=== PATIENT | male | born 1980 | race Caucasian/White ===

== ENCOUNTER → 2024-10-12 10:44 | Outpatient (CLI) | payer MEDICARE, MEDICAID, SELFPAY | PROVIDERS: PCP Registered Nurse; Visit Provider Urology | DX: N47.1 Phimosis (principal); F52.4 Premature ejaculation; R39.9 Unspecified symptoms and signs involving the genitourinary system; Z30.09 Encounter for other general counseling and advice on contraception | CPT/HCPCS: 87086; 99214 ==

== ENCOUNTER 2024-10-21 06:07 | Day surgery (SDC) | payer MEDICARE, SELFPAY ==
[2024-09-16 13:32] VITALS: BMI 23.6
[2024-10-21] VITALS (9 sets, daily range): BP systolic 92–133; BP diastolic 53–85; PULSE 55–67; RESP 12–18; TEMP 36.3–36.6; O2SAT 92–97; BMI 22.9
[2024-10-21] MEDS: LACTATED RINGERS 1,000 ML 21 ML IV (07:06)
--- NOTE | 2024-10-21 07:31 | PM.PREOP ---
Pre-operative Note COVID-19 COVID-19 status: Not tested Interval Note History & Physical reviewed/Exam performed by Physician: Yes Changes to H&P: No
[2024-10-21] MEDS: CEFAZOLIN 2 GM/100 ML PREMIX 100 ML IV (07:52)
--- NOTE | 2024-10-21 08:08 | SUR.OPER ---
Supine on padded OR bed, head on pillow, arms secured on padded arm boards at <90 degrees abduction, legs uncrossed, safety belt at thigh, tape over blanket over lower legs.
[2024-10-21] MEDS: BUPIVACAINE 0.25% (PF) VIAL 30 ML INJ (08:42)
[2024-10-21] MEDS: BACITRACIN 28 GM OINT 1 APPLIC TOP (09:11)
--- NOTE | 2024-10-21 09:33 | P.OP_ITS ---
Procedure & Clinicians Procedure: Circumcision Vasectomy Same procedure as scheduled: Yes Indications: 44 y/o M noted to have phimosis in the setting of a previous dog attack that left him w/ several scars along his glans penis, penile shaft and scrotum who also desires sterility and would prefer management via a circumcision and vasectomy. Surgeon: Manny Luis Click Yes if Unassisted: Yes Anesthesia Type: General Operative Notes Findings: Unremarkable foreskin Closure Type: primary Specimen(s): none sent Estimated Blood Loss (mL): 25 Blood products transfused: none Procedure in detail: Patient was identified in the preoperative holding area and consent confirmed.? He was then brought to the operating room and placed supine on the operating room table where general anesthesia was induced.? All bony prominences were then properly padded and he was prepped and draped in the standard sterile fashion.? A surgical timeout was conducted and all members of the operating team were in agreement. The right vas deferens was isolated underneath the skin and local anesthetic was instilled into the scrotum. A 1cm incision was made using an 11 blade. The subcutaneous tissue was then bluntly dissected using curved sharp hemostats. The vas deferens was isolated using the vas clamp and elevated out of the incision. A small surgical clip was then placed on the distal and proximal aspect of the vas deferens to allow for sharp excision of 1cm of vas deferens. The testicular and abdominal ends of the vas were then fulgurated using electrocautery. Hemostasis was evaluated and noted to be excellent. The procedure was then repeated in similar fashion on the left side. The incision were then closed using 4-0 Chromic in a figure of 8 fashion. Two circumferential incisions were marked on the penis using a marking pen in order to perform a circumcision.? They were both incised using a 15 blade.? Four clamps were then utilized to elevate the prepuce away from the penile shaft and the foreskin was then removed using a combination of tenotomy scissors and bovie electrocautery.? Hemostasis was then evaluated and all active bleeding was controlled using electrocautery.? A 3-0 Chromic U-stitch was then utilized to reapproximate the skin edges in the ventral midline.? A simple interrupted 3-0 Chromic stitch was utilized to reapproximate the skin edges in the dorsal midline.? The rest of the skin edges were brought together using 3-0 Chromic in a simple interrupted fashion (more than 20 stitches were thrown in total).? Attention was then turned towards the frenulum which was reapproximated using 4- 0 Chromic in a running fashion.? The penis was then re-evaluated for hemostasis, which was noted to be excellent at case end.? A penile block and incisional block was then performed using a total of 30cc of 0.25% Marcaine plain.? The wound was then dressed with Xeroform gauze and Coban.? Anesthesia was reversed, he was extubated in the OR and transferred to the PACU in stable condition for recovery. Complications: none Post-operative Condition: stable Disposition: PACU Plan for aftercare: Discharge home from PACU. Will return to Urology clinic in 6 weeks for a postoperative wound check.
[2024-10-21] MEDS: OXYCODONE IR 10 MG TABLET PO (09:40)
== END 2024-10-21 10:36 | disposition home or self-care (01) ==
PROVIDERS: Referring Provider Urology; Visit Provider Urology
PROC: (CPT 54161; principal; 2024-10-21 07:45)
DX: N47.1 Phimosis (principal); Z30.2 Encounter for sterilization
CPT/HCPCS: 54161; 55250; J0690; J1885; J2405; J2704; J3010